=== PATIENT | female | born 1955 | race Caucasian/White ===

== ENCOUNTER → 2017-05-26 | Outpatient (CLI) | payer BC ==
[2017-05-26 10:56] LABS: Non-African American GFR(MDRD) >60 (>60 ml/min/1.73 sqM)
--- NOTE | 2017-05-26 12:28 | MR ---
EXAMINATION TYPE: MR liver wo/w con DATE OF EXAM: 05/26/2017 COMPARISON: CT abdomen October 08, 2016. MRI liver October 30, 2016. HISTORY: liver disease, recheck cysts CONTRAST: Standard multiplanar, multisequence MRI departmental protocol utilizing 20 mL intravenous MultiHance gadolinium contrast. Scanning is of the abdomen focusing on the liver. FINDINGS: LIVER: Liver remains normal in size. No significant signal dropout is seen on in and out of phase seq uence imaging. There is redemonstration of multiple tiny simple appearing cysts scattered throughout the liver most prominent involving the left hepatic lobe but involvement of the right hepatic lobe is also seen. The re is redemonstration of a dominant cyst left hepatic lobe abutting interlobar fissure measuring 3.5 x 4.1 cm on axial image 27 series 501. Along superior margin of this lesion there is oval well-circumscribed lesion of prominent T1 and less prominent T2 hyperintensity measuring 2.5 x 2.2 cm. No signal dropout is seen. Because of underlying T1 hyperintensity evaluation for enhancement is suboptimal but no discrete enhancement is seen. No o bvious passing intrahepatic vessels are identified. Proteinaceous cyst is strongly favored. OTHER: Small to moderate-sized hiatal hernia is redemonstrated. Lung bases are clear. Spleen, pancrea s, gallbladder, and both adrenal glands are felt within normal limits. No suspicious renal masses or hydronephrosis is seen bilaterally. There is levoconvex scoliotic curvature in the lumbar spine. Ther e is some spinal canal effacement and lower lumbar levels due to facet arthropathy. There is no suspi cious bowel dilatation. No concerning abdominal fluid collection is seen. No suspicious abdominal presley nopathy is noted. IMPRESSION: Overall stable findings, multiple simple appearing intrahepatic cysts with a larger 2.5 cm proteinace ous cyst redemonstrated. No new suspicious solid or cystic intrahepatic lesions identified.
== END | disposition home or self-care (01) ==
LOC: RADMRIMAIN 10:11
PROVIDERS: ATTEND Internal Medicine Gastroenterology
DX: K76.89 Other specified diseases of liver (principal)
CPT/HCPCS: 82565; 74183; 36415; A9577

== ENCOUNTER → 2018-06-11 | Outpatient (CLI) | payer BC ==
--- NOTE | 2018-06-14 14:12 | MR ---
EXAMINATION TYPE: MR liver wo/w con DATE OF EXAM: 06/11/2018 COMPARISON: Prior MRI liver May 26, [address] abdomen October 08, 2016 HISTORY: Liver lesion/Yearly follow up CONTRAST: Standard multiplanar, multisequence MRI departmental protocol utilizing 7.5 mL intravenous Gadavist g adolinium contrast. Imaging is performed of the abdomen focusing on the liver. FINDINGS: LIVER: Liver remains normal in size. No significant signal dropout is seen on in and out of phase seq uence imaging. There is redemonstration of multiple tiny simple appearing cysts scattered throughout the liver most prominent involving the left hepatic lobe but involvement of the right hepatic lobe is also seen. There is redemonstration of a dominant cyst left hepatic lobe abutting the anterior aspec t interlobar fissure measuring 3.6 x 4.1 cm on axial image 27 series 601 not significantly changed fr om prior study. Along superior margin of this lesion there is oval well-circumscribed lesion of promi nent T1 and less prominent T2 hyperintensity measuring 2.8 x 2.1 cm. On current study axial image 30. No signal dropout is seen. Because of underlying T1 hyperintensity evaluation for enhancement is sub optimal but no discrete internal enhancement is seen. Thin rim enhancement remains present. No obviou s passing intrahepatic vessels are identified. Thin-walled Proteinaceous cyst remains most strongly f avored. OTHER: Stable small to moderate-sized hiatal hernia is redemonstrated. Lung bases are otherwise clear . Spleen, pancreas, gallbladder, and both adrenal glands are felt within normal limits. No suspicious renal masses or hydronephrosis is seen bilaterally. There is levoconvex scoliotic curvature in the l umbar spine redemonstrated. There is some spinal canal effacement in the lower lumbar levels due to f acet arthropathy. There is no suspicious bowel dilatation. No concerning abdominal fluid collection i s seen. No suspicious abdominal adenopathy is noted. IMPRESSION: Overall stable findings, no new suspicious intrahepatic mass or ductal dilatation.
== END | disposition home or self-care (01) ==
LOC: RADMRIMAIN 11:02
PROVIDERS: ATTEND Internal Medicine
DX: K76.89 Other specified diseases of liver (principal)
CPT/HCPCS: 82565; 74183; 36415; A9581